=== PATIENT | male | born 1955 | race Caucasian/White ===

== ENCOUNTER 2019-04-13 07:49 | Day surgery (SDC) | payer MEDICARE ==
[~2019-04-13 07:49] MED LIST: ACETAMINOPHEN 1,000 MG/100 ML BTL IVPB ONE; CEFAZOLIN 2 Gram 2 GM/50 ML BAG IVPB ONE
[2019-04-13] MEDS ORDERED: PROPOFOL 10 MG/ML VIAL IV ONE (07:50)
[2019-04-13] MEDS ORDERED: KETOROLAC 30 MG/ML VIAL IVP ONE (07:50)
[2019-04-13] MEDS ORDERED: MIDAZOLAM HCL 2MG/2ML VIAL IV ONE (07:50)
[2019-04-13] MEDS ORDERED: MORPHINE SULFATE 4 MG/ML VIAL IVP ONE (07:50)
[2019-04-13] MEDS ORDERED: KETAMINE HCL 100MG/1ML VIAL INJ ONE (07:50)
[2019-04-13] MEDS ORDERED: LIDOCAINE 2% MDV (20MG/ML) 20ML VIAL IV ONE (07:50)
[2019-04-13] MEDS ORDERED: SEVOFLURANE 250 ML INH ONE (07:50)
[2019-04-13 08:06] LABS: ABSOLUTE NEUTROPHIL COUNT 3.58; BASO % 0.8 % (0-6); EOS % 4.3 % (0-6); GRAN % 58.5 % (47-80); HEMATOCRIT 43.8 % (42.0-52.0); HEMOGLOBIN 14.5 gm/dl (14.0-18.0); LYMPH % 26.7 % (16-45); MEAN CELL VOLUME 91.1 fl (81-97); MEAN CORPUSCULAR HEMOGLOBIN 30.1 pg (27-33); MEAN CORPUSCULAR HGB CONC 33.1 g/dl (32-36); MONO % 9.7 % (0-9); PLATELET COUNT 254 K/uL (130-400); RED BLOOD COUNT 4.81 M/uL (4.40-5.70); RED CELL DISTRIBUTION WIDTH 12.5 % (11.5-14.5); WHITE BLOOD COUNT W/O DIFF 6.1 K/uL (4.2-12.2)
[2019-04-13 08:17] LABS: BLOOD UREA NITROGEN 18 mg/dL (8-23); CREATININE 0.9 mg/dL (0.7-1.2); EST GLOMERULAR FILTRATION RATE > 60 mL/min; GLUCOSE,RANDOM 109 mg/dL (74-109)
[2019-04-13] MEDS ORDERED: RINGERS SOLUTION,LACTATED 1,000 ML IV ONE ×2 (09:00→10:47)
[2019-04-13] MEDS ORDERED: MORPHINE SULFATE 5 MG/ML PREFILLED SYRINGE IM ONE (11:00)
[2019-04-13] MEDS ORDERED: BUPIVACAINE 0.5% W/EPI MPF 30 ML VIAL SQ ONE (11:00)
[2019-04-13] MEDS ORDERED: METHYLPREDNISOLONE 40MG/VIAL IU ONE (11:00)
--- NOTE | 2019-04-14 15:40 | Operative Note ---
DATE OF SURGERY: 04/13/2019 PREOPERATIVE DIAGNOSIS: Internal derangement left knee. POSTOPERATIVE DIAGNOSES: 1. 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 2. 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 3. Complex split tear involving the posterior horn of the medial meniscus. 4. Small grade 3 to 4 chondromalacia posterior 1/3 of the medial tibia plateau. 5. 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 OPERATION: Left knee arthroscopy with partial medial meniscectomy with chondroplasty of the medial and patellofemoral compartments. SURGEON: Jonathan Hamlin M.D. ANESTHESIA: General. PREPARATION: Chloraprep. INDIVIDUAL CONSIDERATIONS: None. PROCEDURE: The patient was taken to the operating room and placed supine on the operating room table. He had a successful induction with general anesthetic. The left lower extremity was prepped and draped in the usual fashion. The patient had a superior lateral inflow cannula placed. The skin was infiltrated with 0.5% Marcaine with epinephrine prior. The knee was then inflated with normal saline. An inferior medial and an inferior lateral portal were made in a similar fashion. The arthroscope was introduced through the inferior lateral portal up into the pouch. The patellofemoral compartment showed no loose bodies in the pouch or either gutter. In the patellofemoral joint small grade 3 changes of the patella, small grade 3 change in the notch, with a smaller area of fiber cartilage about the size of maybe a nickel with some mild loose cartilage around it, which was debrided with a shaver. Medially, an obviously completely unstable degenerative split tear involving the posterior horn of the medial meniscus. This is debrided back basically to a stable rim by basically removing most of that with basket forceps and a shaver. In the posterior medial quadrant of the medial tibial plateau there were some grade 3 change and then small areas of exposed bone, which was smoothed with the shaver. Small areas of grade 3 change on the medial femoral condyle just lateral to the midline, centered at about 45 degrees and smoothed with the shaver. In the notch the cruciates were normal. The lateral compartment structures were essentially normal. The knee was then irrigated out with saline to remove loose floating debris. The portals were closed with rosalind, and 20 mL of 0.25% plain Marcaine along with 4 mg of morphine and 40 mg of Depo-Medrol were injected into the knee and a sterile bulky compressive dressing was applied. The patient tolerated the procedures well. The needle and sponge counts were correct. Estimated blood loss was minimal. He was taken back to recovery in good condition. There were no complications. SARAH
== END 2019-04-13 11:55 | disposition home or self-care (01) ==
LOC: SUR 07:49
PROVIDERS: ATTEND Orthopaedic Surgery
DX: S83.232A Complex tear of medial meniscus, current injury, left knee, initial encounter (principal); M94.262 Chondromalacia, left knee
CPT/HCPCS: 29881; 01400; 85025; 80048; J1885; J0690; J2270; J3490; J1030; J7120